=== PATIENT | male | born 1985 | race Caucasian/White ===

== ENCOUNTER 2022-03-22 20:24 | Emergency (ER) | payer BC, SELFPAY ==
[2022-03-22 20:43] VITALS: BP 131/90; PULSE 68; RESP 16; TEMP 36.1; O2SAT 99
[2022-03-22 20:50] VITALS: BP 143/97; PULSE 73; RESP 18; O2SAT 100
--- NOTE | 2022-03-22 21:11 | CRLHL7_ITS ---
For Patients: As a result of the Century Cures Act, medical imaging exams and procedure reports are released immediately into your electronic medical record. You may view this report before your referring provider. If you have questions, please contact your health care provider. INDICATION: Right upper quadrant pain TECHNIQUE: Ultrasound abdomen limited. Sonographic images of the right upper quadrant were obtained using baum-scale and color Doppler images. COMPARISON: None FINDINGS: Liver: Geographic increased echogenicity in the left lobe of the liver is present which may be due to inhomogeneous fatty infiltration. Gallbladder: The neck of the gallbladder is not well demonstrated. Mild nonspecific gallbladder distention is present. The gallbladder wall is normal in appearance. No pericholecystic fluid is present. No sonographic Armas???s sign is present. Common bile duct: The common bile duct is normal in appearance and size. No intrahepatic biliary ductal dilatation seen. Pancreas: The visualized portions of the pancreatic head and body are normal in appearance. Right Kidney: 12.7 cm. No hydronephrosis or ureterectasis is seen. Vascular: The visualized abdominal aorta and IVC are unremarkable. Miscellaneous: Trace right pleural effusion is incidentally noted. IMPRESSIONS: 1. The right upper quadrant is unremarkable in appearance. 2. Trace right pleural effusion is incidentally noted. 3. Geographic increased echogenicity in the left lobe of the liver is present which may be due to inhomogeneous fatty infiltration. Dictated by Denzel Pena MD @ 03/22/2022 11:02:52 PM Dictated by: Denzel Pena MD @ 03/22/2022 23:03:02 (Electronically Signed)
--- NOTE | 2022-03-22 21:13 | ED_ITS ---
HPI - General Adult General Time Seen by Provider: 21:13 Date Seen: 03/22/22 Chief complaint: Abdominal Pain Stated complaint: Upper Central Abdominal Pain Time Seen by Provider: 03/22/22 21:00 Source: patient Mode of arrival: ambulatory Limitations: no limitations History of Present Illness HPI narrative: Patient is a 36 year white male has had long-standing intermittent episodes of epigastric pain. Had some imaging in the past that he was told he was ?backed up?. Does not feel constipated he has had regular bowel movements. He notices this is worse intermittently when he does not eat breakfast, and then eats lunch. He typically fixes it by not eating for a day or so. Occasional heartburn but not regularly. He has had no sticking of food or difficulty swallowing. No weight loss, fevers, chills, chest pain, breathing difficulty. No blood in his stool, and really not not vomiting at this time. No weight loss Related Data Home Medications Medication Instructions Recorded Confirmed No Known Home Medications 03/10/22 03/10/22 Allergies Allergy/AdvReac Type Severity Reaction Status Date / Time No Known Drug Allergies Allergy Verified 03/10/22 10:32 Review of Systems Status of ROS: Reports: 10 or more systems reviewed and unremarkable except as noted in History and below [facility] Social History Smoking Status: Never smoker How often do you have a drink containing alcohol: monthly or less AUDIT-C Alcohol total score: 1 Non-prescribed substance use: denies use service: No Exam Narrative: Exam Narrative: Objective: The patient is in no apparent distress resting comfortably vital signs unremarkable HEENT is unremarkable no scleral icterus Pulses regular Heart rhythm regular heart murmur Abdomen bowel sounds normoactive and present he has got some mild epigastric tenderness right upper quadrant tenderness to palpation no rebound No palpable masses ; extremity is without edema good peripheral perfusion noted Const: Vital Signs, click to edit/add: Vital Signs - 24 hr 03/22/22 20:43 03/22/22 20:50 03/22/22 23:25 Temperature 97.0 F L 97.8 F Pulse Rate [Right Pulse Oximeter] 68 73 74 Respiratory Rate 16 18 14 Blood Pressure [Ri ght Upper Arm] 131/90 H 143/97 H 120/85 Pulse Oximetry 99 100 100 Oxygen Delivery Me thod Room Air Room Air Room Air Course Vital Signs Vital signs: Initial Vital Signs Temperature 97.0 F L 03/22/22 20:43 Temperature Source Temporal Artery Scan 03/22/22 20:43 Pulse Rate 68 03/22/22 20:43 Pulse Rhythm 03/22/22 20:43 Respiratory Rate 16 03/22/22 20:43 Blood Pressure 131/90 H 03/22/22 20:43 Blood Pressure Mean 103 03/22/22 20:43 Blood Pressure Position Semi-Fowlers 03/22/22 20:43 Pulse Oximetry 99 03/22/22 20:43 Oxygen Delivery Method 03/22/22 20:43 Vital Signs Temperature 97.0 F L 03/22/22 20:43 Pulse Rate 68 03/22/22 20:43 Respiratory Rate 16 03/22/22 20:43 Blood Pressure 131/90 H 03/22/22 20:43 Pulse Oximetry 99 03/22/22 20:43 Oxygen Delivery Method 03/22/22 20:43 Temperature 97.8 F 03/22/22 23:25 Pulse Rate 74 03/22/22 23:25 Respiratory Rate 14 03/22/22 23:25 Blood Pressure 120/85 03/22/22 23:25 Pulse Oximetry 100 03/22/22 23:25 Oxygen Delivery Method 03/22/22 23:25 Medical Decision Making MDM Narrative Medical decision making narrative: Patient has a history of intermittent epigastric pain, primarily with not eating breakfast. Had an episode today. Says certainly has a GI consultation to it. Certainly could be a gallbladder issue with some palpable tenderness in his epigastrium and right upper quadrant. Certainly could be gastritis or peptic ulcer disease. I think at this point given his presentation I would recommend we give him IV Protonix IV fluid small amount IV pain medication, check electrolytes liver function tests, get a right upper quadrant ultrasound. Can have him follow up with surgery. He certainly could have functional gallbladder issue as well. Will do the above-mentioned studies and then follow-up from there. Addendum: Patient gallbladder ultrasound look reassuring, there was a question of a small pleural effusion on the right a sent upper respiratory illness and some chest discomfort. Laboratory studies look reassuring as well. His pain is resolved with the MS in the Protonix. I would recommend that give this is mild esophageal spasm he should take Protonix or Prilosec 20 mg daily for the next couple of weeks, and then see Dr. Mena in follow-up. Consider endoscopy if he continues to have symptoms. Will review his chest x-ray before he read his discharge S x-ray by my review looks unremarkable. Patient be discharged home Lab Data Labs: Lab Results 03/22/22 03/22/22 03/22/22 Range/Units 21:25 21:25 21:25 WBC 7.12 (4.50-11.00) K/uL RBC 4.64 (4.30-5.90) m/uL Hgb 15.1 (13.5-17.5) gm/dL Hct 43.3 (37.0-53.0) % MCV 93 (80-100) fL MCH 33 (26-34) pg MCHC 35 (32-36) gm/dL RDW Coeff of Britton 12.0 (11.5-15.5) % Plt Count 232 (140-440) K/uL Neut % (Auto) 59.3 (42.0-72.0) % Lymph % (Auto) 31.5 (20-44) % Gibson % (Auto) 7.9 (0.0-11.0) % Eos % (Auto) 1.1 (0.0-7.0) % Baso % (Auto) 0.1 (0.0-3.0) % Neut # (Auto) 4.22 (1.7-7.0) K/uL Lymph # (Auto) 2.24 (0.90-2.90) K/uL Gibson # (Auto) 0.60 (0.00-0.90) K/UL Eos # (Auto) 0.08 (0.00-0.50) K/uL Baso # (Auto) 0.01 (0.00-0.30) K/uL Sodium 140 (135-149) mmol/L Potassium 4.1 (3.6-5.1) mmol/L Chloride 104 (96-114) mmol/L Carbon Dioxide 29 (20-32) mmol/L BUN 17 (5-24) mg/dL Creatinine 1.0 (0.5-1.5) mg/dL Estimated GFR 99 ml/min Glucose 96 (60-115) mg/dL Calcium 9.3 (8.4-10.6) mg/dL Total Bilirubin 0.6 (0.1-1.5) mg/dL Direct Bilirubin 0.2 (0.0-0.5) mg/dL AST 28 (12-35) U/L ALT 32 (4-50) U/L Alkaline Phosphatase 79 (40-150) U/L C-Reactive Protein < 0.5 L (0.5-1.0) mg/dL Total Protein 7.7 (6.0-8.3) g/dL Albumin 4.8 (3.3-5.0) g/dL Amylase 77 (18-89) U/L Discharge Plan Discharge Clinical Impression: Intermittent abdominal pain Patient Disposition: Home w/ Parent or Adult Condition: Improved Additional Instructions: Low-fat diet, Prilosec 20 mg [id number] daily for 2 weeks, follow-up with Dr. Mena at that time. Consider endoscopy if continued symptoms. Activity as tolerated, return as needed. Activity Level: No Restrictions Discharge Diet: Low Fat/Low Cholesterol Prescriptions: No Action No Known Home Medications Follow Up/Referrals: Maldonado Ornelas MD [Primary Care Provider] - Stand Alone Forms: [employer] Info Instructions
[2022-03-22] MEDS: PANTOPRAZOLE SODIUM 40 MG INJ IVP (21:34)
[2022-03-22] MEDS: 0.9 % SODIUM CHLORIDE 1000 ml 1,000 ML 6000 ML IV (21:34)
[2022-03-22] MEDS: MORPHINE 4 MG/ML INJ 2 MG IVP (21:34)
[2022-03-22 21:47] LABS: Basophils Absolute Auto 0.01 K/uL (0.00-0.30); Basophils Percent Auto 0.1 % (0.0-3.0); Eosinophils Absolute Auto 0.08 K/uL (0.00-0.50); Eosinophils Percent Auto 1.1 % (0.0-7.0); Hematocrit 43.3 % (37.0-53.0); Hemoglobin* 15.1 gm/dL (13.5-17.5); Immature Granulocytes Abs Auto 0.01 K/uL (0.00-0.30); Immature Granulocytes Pct Auto 0.1 %; Lymphocytes Absolute Auto 2.24 K/uL (0.90-2.90); Lymphocytes Percent Auto 31.5 % (20-44); Mean Corpuscular HGB Conc 35 gm/dL (32-36); Mean Corpuscular Hemoglobin 33 pg (26-34); Mean Corpuscular Volume 93 fL (80-100); Monocytes Percent Auto 7.9 % (0.0-11.0); Neutrophils Absolute Auto 4.22 K/uL (1.7-7.0); Neutrophils Percent Auto 59.3 % (42.0-72.0); Platelet Count* 232 K/uL (140-440); Red Blood Count 4.64 m/uL (4.30-5.90); White Blood Count* 7.12 K/uL (4.50-11.00)
[2022-03-22 21:51] LABS: Slide Review Reflex No
[2022-03-22 22:00] LABS: Chloride* 104 mmol/L (96-114)
[2022-03-22 22:01] LABS: Potassium* 4.1 mmol/L (3.6-5.1); Sodium* 140 mmol/L (135-149)
[2022-03-22 22:02] LABS: Albumin* 4.8 g/dL (3.3-5.0)
[2022-03-22 22:03] LABS: Amylase* 77 U/L (18-89); Estimated Glomerular Filt Rate 99 ml/min
[2022-03-22 22:04] LABS: Bilirubin Direct* 0.2 mg/dL (0.0-0.5); Bilirubin Total* 0.6 mg/dL (0.1-1.5); Blood Urea Nitrogen* 17 mg/dL (5-24); Calcium* 9.3 mg/dL (8.4-10.6); Carbon Dioxide* 29 mmol/L (20-32); Glucose* 96 mg/dL (60-115); Total Protein* 7.7 g/dL (6.0-8.3)
[2022-03-22 22:05] LABS: Alanine Aminotransferase* 32 U/L (4-50); Alkaline Phosphatase* 79 U/L (40-150); Aspartate Amino Transferase* 28 U/L (12-35)
[2022-03-22 22:11] LABS: C Reactive Protein* < 0.5 mg/dL (0.5-1.0)
--- NOTE | 2022-03-22 22:48 | CRLHL7_ITS ---
For Patients: As a result of the Cures Act, medical imaging exams and procedure reports are released immediately into your electronic medical record. You may view this report before your referring provider. If you have questions, please contact your health care provider. INDICATION: Chest pain TECHNIQUE: Chest radiograph 2 views COMPARISON: 02/21/2019 FINDINGS: Mediastinum: The mediastinum is normal in appearance. The heart silhouette is normal in size and morphology. Lung: Both lungs are unremarkable in appearance. No sign of pleural effusion seen. No pneumothorax is identified. Bone and Soft tissue: Unremarkable for age. IMPRESSION: 1. No acute cardiopulmonary disease is seen. Dictated by: Denzel Pena MD @ 03/22/2022 23:09:33 (Electronically Signed)
[2022-03-22 23:25] VITALS: BP 120/85; PULSE 74; RESP 14; TEMP 36.6; O2SAT 100
== END 2022-03-22 23:28 | disposition home or self-care (01) ==
PROVIDERS: Emergency Provider Family Medicine; PCP Family Medicine
DX: R10.84 Generalized abdominal pain (principal)
CPT/HCPCS: 36415; 71046; 76705; 80048; 80076; 82150; 85025; 86140; 96374; 96375; 99284; C9113; J2270; J7030

== ENCOUNTER 2023-12-02 10:56 | Outpatient (CLI) | payer BC, SELFPAY | END 2023-12-02 10:57 | disposition home or self-care (01) | LOC: NFLDREF 12-03 09:27 | PROVIDERS: PCP Family Medicine; Referring Provider Family Medicine; Visit Provider Family Medicine | DX: E78.1 Pure hyperglyceridemia (principal) | CPT/HCPCS: 80048; 80061; 83695 ==

== ENCOUNTER 2023-12-16 12:42 | Outpatient (CLI) | payer BC, SELFPAY ==
--- OUTSIDE RECORDS SUMMARY | 2023-12-16 12:44 | XMS_ITS | Clinical Summary ---
Author Organization [facility] Address [place], [place] [address] Care Team Providers Care Evaluator Transfer Students Name Role Phone Isrrael Jon MD Primary Care Provider [phone] Encounters Date Type Department Care Team Description 12/09/2023 8:15 AM CDT Ancillary Procedure [facility] [id number] [place] [address] 12/09/2023 Travel 12/07/2023 Orders Only [facility] [address] [place] [address] Self, Referral <No scans attached> from Last 3 Months Social History Tobacco Use Types Packs/Day Years Used Date Smoking Tobacco: Never Assessed Sex and Gender Information Value Date Recorded Sex Assigned at Not on file Gender Identity Not on file Sexual Orientation Not on file Plan of Treatment Health Maintenance Due Date Last Done Comments Tdap 10/22/1995 Depression screening for age 12+ 1996 HIV for age 15-65 10/22/1999 BMI (ht and wt on same day) for age 18+ 2002 Hepatitis C screening for age 18-79 2002 Tetanus booster 2004 Lipids for age 35-44 10/22/2019 COVID-19 vaccine series ( season) 2023 01/21/2023, 04/24/2021, 06/22/2020, Additional history exists Influenza for age 9-49 11/14/2023 Pneumococcal series for age 6-64 Aged Out No longer eligible based on patient's age to complete this topic Procedures Procedure Name Priority Date/Time Associated Diagnosis Comments CT CARDIAC CALCIUM SCORE ONLY WO SINGLE READ Routine 12/09/2023 8:22 AM CDT Screening for cardiovascular condition from Last 3 Months Results * CT CARDIAC CALCIUM SCORE ONLY WO SINGLE READ (12/09/2023 8:22 AM CDT) Anatomical Region Laterality Modality Computed Tomogra phy 12/09/2023 2:48 PM CDT Narrative 12/09/2023 2:48 PM CDT For Patients: ??As a result of the Cures Act, medical imaging exams and procedure reports are released immediately into your electronic medical record. ??You may view this report before your referring provider. ??If you have questions, please contact your health care provider. CT CARDIAC CALCIUM SCORING PATIENT HISTORY: ??Screening for cardiovascular condition. REPORT: ??High-resolution, ECG-synchronized noncontrast computed tomography of the heart with attention to the coronary arteries was performed. ?? Coronary calcification analyzed using Siemens calcium scoring software. These are the results of the evaluation: CT Calcium Scoring: ??This cardiac CT examination will provide you with a coronary artery calcium score. A coronary artery calcium score is a measurement of the amount of calcified plaque in the coronary arteries, the arteries that supply blood to the heart muscle. The coronary artery calcium score is calculated based on the number, size, and density of the calcified plaques in the coronary arteries. The amount of calcified coronary plaque has been shown to directly correlate with future risk for heart disease. The coronary artery calcium is a marker of how much plaque has accumulated in the snyder of the coronary arteries. It is not a test for blockages. This test is intended to assess cardiovascular risk in patients without symptoms. It is not intended to be a test for individuals with chest pain or other possible symptoms suggestive of heart disease. If you are having chest pain or other potential cardiovascular symptoms, see your physician. Calcium Score: Left main = 0 Left anterior descending = 0 Left circumflex = 0 Right coronary artery = 0 Total calcium score = 0 Calcium score percentile: Patient age is outside of MORGAN 2006 database range. No Calcified Plaque Seen Assessment: ?? Your cardiac CT examination has shown no measurable calcified coronary plaque. Your coronary artery calcium score is zero. ?? Having zero calcified plaque in the arteries that supply your heart is associated with a low risk for heart attack over the next 5 years. As discussed above, the coronary artery calcium score is intended for risk assessment in patients without cardiovascular symptoms. The low risk associated with having zero calcified plaque does not apply to individuals who are having symptoms. If you are having chest pain or other potential cardiovascular symptoms, see your physician. Recommendations: To maintain a low cardiovascular risk, we strongly recommend adherence to healthy lifestyle behaviors including: - Following a heart healthy diet focused on modest portion sizes, a high intake of fresh fruits and vegetables, whole grains, healthy fats (olive oil, nuts and seeds, avocados), and healthy proteins (unprocessed meats, fish, legumes). - Following an active lifestyle including 30-45 minutes of moderate intensity exercise 5-6 times per week - Avoidance of tobacco products. The scientific evidence would suggest that the majority of individuals with a coronary artery calcium score of zero are at low risk for a heart attack, low enough risk that they are unlikely to benefit from preventive cardiovascular medication including aspirin and the cholesterol lowering statin medications. We recommend that individuals with a coronary artery calcium score of zero avoid taking a daily aspirin to prevent heart disease, as they are unlikely to benefit from aspirin, and aspirin use is associated with a small increase in the risk of bleeding. Unless you have markedly elevated cholesterol or diabetes, the scientific evidence would suggest that individuals with a calcium score of zero can potentially avoid taking cholesterol-lowering medications for the next 3-5 years. These recommendations are generalized and may not specifically apply to you as an individual. Your primary care physician is in the best position to provide advice on your care and clinical decisions should ultimately be made by you and your physician. EXTRA-CARDIAC FINDINGS: Normal heart size. No pericardial effusion. 3 mm noncalcified pulmonary nodule in the right middle lobe (series 3, image 20). Follow-up per Fleischner society guidelines. The visualized lungs are otherwise clear. Please note that all CT scans at this facility use dose modulation, iterative reconstruction, and/or weight-based dosing when appropriate to reduce radiation dose to as low as reasonably achievable. Dictated by Piper Oviedo MD @ 12/09/2023 2:48:20 PM (Electronically Signed) Procedure Note Piper Oviedo MD - 12/09/2023 For Patients: As a result of the Century Cures Act, medical imagingexams and procedure reports are released immediately into your electronicmedical record. You may view this report before your referring provider.If you have questions, please contact your health care provider. CT CARDIAC CALCIUM SCORING PATIENT HISTORY: Screening for cardiovascular condition. REPORT: High-resolution, ECG-synchronized noncontrast computed tomographyof the heart with attention to the coronary arteries was performed. Coronary calcification analyzed using Siemens calcium scoring software.These are the results of the evaluation: CT Calcium Scoring: This cardiac CT examination will provide you with acoronary artery calcium score. A coronary artery calcium score is ameasurement of the amount of calcified plaque in the coronary arteries,the arteries that supply blood to the heart muscle. The coronary arterycalcium score is calculated based on the number, size, and density of thecalcified plaques in the coronary arteries. The amount of calcifiedcoronary plaque has been shown to directly correlate with future risk forheart disease. The coronary artery calcium is a marker of how much plaque has accumulatedin the snyder of the coronary arteries. It is not a test for blockages.This test is intended to assess cardiovascular risk in patients withoutsymptoms. It is not intended to be a test for individuals with chest painor other possible symptoms suggestive of heart disease. If you are havingchest pain or other potential cardiovascular symptoms, see yourphysician. Calcium Score: Left main = 0 Left anterior descending = 0 Left circumflex = 0 Right coronary artery = 0 Total calcium score = 0 Calcium score percentile: Patient age is outside of MORGAN 2006 databaserange. No Calcified Plaque Seen Assessment: Your cardiac CT examination has shown no measurable calcified coronaryplaque. Your coronary artery calcium score is zero. Having zero calcified plaque in the arteries that supply your heart isassociated with a low risk for heart attack over the next 5 years. As discussed above, the coronary artery calcium score is intended for riskassessment in patients without cardiovascular symptoms. The low riskassociated with having zero calcified plaque does not apply to individualswho are having symptoms. If you are having chest pain or other potentialcardiovascular symptoms, see your physician. Recommendations: To maintain a low cardiovascular risk, we strongly recommend adherence tohealthy lifestyle behaviors including: - Following a heart healthy diet focused on modest portion sizes, a highintake of fresh fruits and vegetables, whole grains, healthy fats (oliveoil, nuts and seeds, avocados), and healthy proteins (unprocessed meats,fish, legumes). - Following an active lifestyle including 30-45 minutes of moderateintensity exercise 5-6 times per week - Avoidance of tobacco products. The scientific evidence would suggest that the majority of individualswith a coronary artery calcium score of zero are at low risk for a heartattack, low enough risk that they are unlikely to benefit from preventivecardiovascular medication including aspirin and the cholesterol loweringstatin medications. We recommend that individuals with a coronary artery calcium score of zeroavoid taking a daily aspirin to prevent heart disease, as they areunlikely to benefit from aspirin, and aspirin use is associated with asmall increase in the risk of bleeding. Unless you have markedly elevated cholesterol or diabetes, the scientificevidence would suggest that individuals with a calcium score of zero canpotentially avoid taking cholesterol-lowering medications for the next 3-5years. These recommendations are generalized and may not specifically apply toyou as an individual. Your primary care physician is in the best positionto provide advice on your care and clinical decisions should ultimately bemade by you and your physician. EXTRA-CARDIAC FINDINGS: Normal heart size. No pericardial effusion. 3 mmnoncalcified pulmonary nodule in the right middle lobe (series 3, image20). Follow-up per Fleischner society guidelines. The visualized lungs areotherwise clear. Please note that all CT scans at this facility use dose modulation,iterative reconstruction, and/or weight-based dosing when appropriate toreduce radiation dose to as low as reasonably achievable. Dictated by Piper Oviedo MD @ 12/09/2023 2:48:20 PM (Electronically Signed) Referral Self CT from Last 3 Months Care Teams Evaluator Transfer Students Relationship Specialty Start Date End Date Isrrael Jon MD [address] [place] [address] PCP - General Family Practice 12/09/23
--- NOTE | 2023-12-16 13:22 | W.ANESCHARGE ---
Anesthesia Charges Start Date/Time Anesthesia Start Date: 12/16/23 Anesthesia Start Time: 13:40 Stop Date/Time Anesthesia Stop Date: 12/16/23 Anesthesia Stop Time: 14:00
--- NOTE | 2023-12-16 13:58 | W.ANESCHARGE ---
Anesthesia Charges Start Date/Time Anesthesia Start Date: 12/16/23 Anesthesia Start Time: 13:40 Stop Date/Time Anesthesia Stop Date: 12/16/23 Anesthesia Stop Time: 14:00
== END 2023-12-16 12:43 | disposition home or self-care (01) ==
PROVIDERS: PCP Family Medicine; Visit Provider Surgery
DX: R10.13 Epigastric pain (principal)
CPT/HCPCS: 00731; 43239; 88305; J2704; J3490

== ENCOUNTER 2024-01-20 07:30 | Outpatient (RCR) | payer BC, SELFPAY | END 2024-02-29 13:12 | disposition home or self-care (01) | PROVIDERS: PCP Family Medicine; Visit Provider Family Medicine | DX: M70.62 Trochanteric bursitis, left hip (principal); M54.10 Radiculopathy, site unspecified; Z51.89 Encounter for other specified aftercare | CPT/HCPCS: 97110; 97140; 97161 ==

== ENCOUNTER 2024-02-17 13:46 | Outpatient (CLI) | payer BC, SELFPAY ==
--- OUTSIDE RECORDS SUMMARY | 2024-02-17 13:49 | XMS_ITS | Clinical Summary ---
Author Organization [employer] [facility] Address [place], [place] [address] Care Team Providers Care Fire Pilot Name Role Phone Isrrael Jon MD Primary Care Provider [phone] Encounters Date Type Department Care Team Description 12/16/2023 Lab Requisition [facility] [phone] Mikal Curran MD 12/09/2023 8:15 AM CDT Ancillary Procedure [facility] [address] [place] [address] 12/09/2023 Travel 12/07/[address] [facility] [address] [place] [address] Self, Referral <No scans attached> from Last [...] Procedure Name Priority Date/Time Associated Diagnosis Comments LAB TRACKING EVENT Routine 12/16/2023 1: 49 PM CDT PATH TISSUE EXAM Routine 12/16/2023 1:[address] CARDIAC CALCIUM SCORE ONLY WO SINGLE READ Routine 12/09/2023 8:22 AM CDT Screening for cardiovascular condition from Last 3 Months Results * LAB TRACKING EVENT (12/16/2023 1:49 PM CDT) Other (Other) Client Collect / Unknown 12/16/2023 1:49 PM CDT 12/16/2023 11:32 PM CDT Mikal Curran MD LAB BILL ONLY [facility] [address] [place] [address], * PATH TISSUE EXAM (12/16/2023 1:49 PM CDT) Case Report Pathology Report Case: [id number] Authorizing Provider: Mikal Curran MD Collected: 12/16/2023 1349 Ordering Location: [facility] Received: 12/17/2023 0814 Pathologist: Festus Issa MD Specimens: A) - Duodenum Biopsy B) - Stomach Biopsy C) - Distal Esophagus Biopsy D) - Mid Esophagus Biopsy 12/20/2023 9:51 AM CDT [facility] Final Diagnosis A) DUODENUM, BIOPSY: 1. Normal duodenal mucosa 2. Negative for celiac disease and other enteropathy B) STOMACH, ANTRUM AND BODY, BIOPSY: 1. Normal gastric antral and body mucosae 2. Negative for inflammation, Helicobacter and atrophy C) ESOPHAGUS, DISTAL, BIOPSY: 1. Normal esophageal squamous mucosa 2. Negative for reflux changes and eosinophilic esophagitis 3. Negative for columnar mucosa D) ESOPHAGUS, MID, BIOPSY: 1. Normal esophageal squamous mucosa 2. Negative for reflux changes and eosinophilic esophagitis 3. Negative for columnar mucosa 12/20/2023 9:51 AM CDT [facility] Clinical Information 38-year-old man presents with epigastric abdominal pain. Upper endoscopy is grossly normal. 12/20/2023 9:51 AM CDT [facility] Gross Description A) Received in formalin are 4 ta mucosal fragments averaging 4 mm in greatest dimension, which are entirely submitted in one cassette. It is labeled with the patient's name and designated duodenum biopsy. B) Received in formalin are 5 ta mucosal fragments averaging 4 mm in greatest dimension, which are entirely submitted in one cassette. It is labeled with the patient's name and designated stomach biopsy. C) Received in formalin are 4 ta mucosal fragments averaging 3 mm in greatest dimension, which are entirely submitted in one cassette. It is labeled with the patient's name and designated distal esophagus biopsy. D) Received in formalin are 2 ta mucosal fragments averaging 3 mm in greatest dimension, which are entirely submitted in one cassette. It is labeled with the patient's name and designated midesophagus biopsy. VIBHA Meyer 12/17/2023 10:17 AM 12/20/2023 9:51 AM CDT [facility] Microscopic Description The final diagnosis is based on microscopic examination of appropriate sections of all specimens. 12/20/2023 9:51 AM CDT [facility] Additional Information Interpreted at [facility] - [address] [place] [id number] 12/20/2023 9:51 AM CDT [facility] Other (Duodenum Biopsy) 12/16/2023 1:49 PM CDT 12/17/2023 8:14 AM CDT Specimen (specimen) (Stomach Biopsy) 12/16/2023 1:49 PM CDT 12/17/2023 8:14 AM CDT Specimen (specimen) (Distal Esophagus Biopsy) 12/16/2023 1:49 PM CDT 12/17/2023 8:14 AM CDT Specimen (specimen) (Mid Esophagus Biopsy) 12/16/2023 1:49 PM CDT 12/17/2023 8:14 AM CDT Mikal Curran MD PATHOLOGY/CYTOLOGY [facility] [address] [place] [address], * CT CARDIAC CALCIUM SCORE ONLY WO SINGLE READ (12/09/2023 8:22 AM CDT) Anatomical Region Laterality Modality Computed Tomogra phy 12/09/2023 2:48 PM CDT Narrative 12/09/2023 2:48 PM CDT For Patients: As a result of the Cures Act, medical imaging exams and procedure reports are released immediately into your electronic medical record. You may view this report before your referring provider. If you have questions, please contact your health care provider. CT CARDIAC CALCIUM SCORING PATIENT HISTORY: Screening for cardiovascular condition. REPORT: High-resolution, ECG-synchronized noncontrast computed tomography of the heart [...] database range. No Calcified Plaque Seen Assessment: Your cardiac [...] CT from Last 3 Months Care Teams Fire Pilot Relationship Specialty Start Date End Date Isrrael Jon MD [address] [place] [address] PCP - General Family Practice 12/09/23
== END 2024-02-17 13:47 | disposition home or self-care (01) ==
PROVIDERS: PCP Family Medicine; Visit Provider Family Medicine
DX: R10.9 Unspecified abdominal pain (principal)
CPT/HCPCS: 80076; 83690; 87086

== ENCOUNTER 2024-02-25 15:45 | Outpatient (CLI) | payer BC, SELFPAY ==
--- NOTE | 2024-02-25 15:45 | CRLHL7_ITS ---
For Patients: As a result of the Century Cures Act, medical imaging exams and procedure reports are released immediately into your electronic medical record. You may view this report before your referring provider. If you have questions, please contact your health care provider. INDICATION: Abdominal pain. COMPARISON: Ultrasound of the right upper quadrant from 03/22/2022. TECHNIQUE: Ultrasound examination of the abdomen was performed. FINDINGS: The gallbladder is normal in appearance with no sign of cholelithiasis or acute cholecystitis. A sonographic Armas sign is not present, with no pain over the gallbladder during ultrasound examination. The common bile duct is normal in caliber at 3 mm. The liver shows no sign of mass, contour abnormality or ascites. Hepatic echogenicity is now normal. The area of increased echogenicity in the left lobe of the liver from focal fatty infiltration is no longer present. The pancreatic head and body were examined and are normal in appearance. The abdominal aorta is normal in caliber. The portions of the inferior vena cava that are seen are normal in appearance as well. The kidneys are unremarkable, the right measuring 10.9 cm and the left measuring 10.3 cm in length. The spleen is normal in appearance and size. There has been no interval change aside from resolution of the focal fatty infiltration of the left lobe of the liver.. IMPRESSION: 1. Normal ultrasound examination of the abdomen. 2. Interval resolution of focal fatty infiltration of the left lobe of the liver. Dictated by Diallo London MD @ 02/26/2024 6:39:48 PM (Electronically Signed)
== END 2024-02-25 15:46 | disposition home or self-care (01) ==
LOC: US 15:46
PROVIDERS: PCP Family Medicine; Visit Provider Family Medicine
DX: R10.9 Unspecified abdominal pain (principal)
CPT/HCPCS: 76700

== ENCOUNTER 2024-06-16 10:15 | Outpatient (CLI) | payer BC, SELFPAY | END 2024-06-16 10:16 | disposition home or self-care (01) | PROVIDERS: PCP Family Medicine; Visit Provider Family Medicine | DX: I49.9 Cardiac arrhythmia, unspecified (principal); R53.83 Other fatigue | CPT/HCPCS: 80048; 83735; 84443 ==